=== PATIENT | male | born 1970 | race Two or more races ===

== ENCOUNTER 2021-06-11 00:10 | Inpatient (IN) | payer OTHER ==
[~2021-06-11] VITALS: Ht 182.9 cm; Wt 5.0 kg
[2021-06-11] MEDS ORDERED: DICLOFENAC SOD100 MG (13:14)
[2021-06-11] MEDS ORDERED: DICLOFENAC POTA50 MG (13:14)
[2021-06-11] MEDS ORDERED: SIMVASTATIN20 MG (13:14)
== END 2021-06-13 17:09 | disposition home or self-care (01) | DRG 603 ==
LOC: ER 00:10 → MEDI 11:40 → SEC-K 11:40 → MEDI 12:15
PROVIDERS: ADMIT Internal Medicine; ATTEND Internal Medicine
DX: L03.116 Cellulitis of left lower limb (principal); A46 Erysipelas; E78.49 Other hyperlipidemia; Z20.822 Contact with and (suspected) exposure to COVID-19